=== PATIENT | female | born 1980 | race Caucasian/White ===

== ENCOUNTER 2018-02-15 12:05 | Emergency (ER) | payer OTHER ==
[~2018-02-15] VITALS: Ht 162.6 cm; Wt 57.0 kg
[2018-02-15] MEDS ORDERED: DIPHENHYDRAMINE 25 MG CAPSULE PO ONE (12:30)
[2018-02-15] MEDS ORDERED: DIPHENHYDRAMINE 50 MG CAPSULE ONE (12:30)
[2018-02-15] MEDS ORDERED: FAMOTIDINE 20 MG TABLET PO ONE (12:30)
[2018-02-15] MEDS ORDERED: FAMOTIDINE 20 MG TABLET ONE (12:30)
[2018-02-15] MEDS ORDERED: DIPHENHYDRAMINE 25 MG CAPSULE ONE (12:32)
[2018-02-15 13:24] VITALS: BP 151/98
== END 2018-02-15 13:58 | disposition home or self-care (01) ==
LOC: ED 13:49
DX: R07.89 Other chest pain (principal)
CPT/HCPCS: 93005; 99284; J7512; Q0163